=== PATIENT | male | born 1950 | race Caucasian/White ===

== ENCOUNTER 2017-11-01 08:34 | Observation (INO) | payer OTHER ==
--- NOTE | 2017-11-01 08:47 | CPEKG ---
Heart Rate: 55 RR Interval: 1091 P-R Interval: 184 QRSD Interval: 78 QT Interval: 412 QTC Interval: 394 P [place]: 70 QRS [place]: 29 T Wave [place]: 51 EKG Severity - NORMAL ECG - EKG Impression: SINUS RHYTHM Electronically Signed By: Alannah Pina 01-Nov-2017 16:28:43
--- NOTE | 2017-11-01 09:01 | EDPHY ---
HPI/HX/ROS/PE/MDM Narrative: CHIEF COMPLAINT: Chest pain HISTORY OF PRESENT ILLNESS: This patient is a 67 y/o male with history of hypertension arriving with his complaining of chest tightness. He is generally active, but felt unusually fatigued following his exercise on Sunday, three days ago. Also reports slight chest discomfort on Sunday with exercise. He woke at midnight with midsternal chest tightness and felt himself breathing deeply which resolved after 5min. The patient notes he uses CPAP for mild ROSALINDA. He woke again to use the restroom and noted similar symptoms which again resolved quickly. Patient has noted more frequent urination at night lately. This morning after stretching he felt tired, nauseous, had a sensation of epigastric "constriction". He felt mildly diaphoretic from nausea and experienced mild shortness of breath. He called his primary care provider, Dr. Talley, who recommended evaluation here in ED. The patient took an 81mg aspirin and 325mg aspirin as well as his blood pressure medications this morning. He noted his was around 190 systolic which is unusual for him. Currently, he denies any chest pain or shortness of breath. He did not note any increased chest discomfort with deep inspiration. Patient denies history of reflux, ulcer disease, GERD. No diabetes, asthma. Mild hyperlipidemia, not medicated. Nonsmoker. No family history of heart attacks at an early age. No fever, chills, palpitations, vomiting, diarrhea, headache, lightheadedness. REVIEW OF SYSTEMS: Aside from elements discussed in the HPI, a comprehensive 10-point review of systems was reviewed and is negative. PAST MEDICAL HISTORY: Hypertension. 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 . at bedside. Nonsmoker. Moderate alcohol use. No illicit drug use. VITAL SIGNS: Reviewed by me GENERAL: Well-developed, well-nourished, resting comfortably in no respiratory distress. HEENT: Atraumatic. Eyes: No icterus, no injection. Mouth: moist mucous membranes. No erythema or lesions. Neck: supple with no adenopathy. LUNGS: Clear to auscultation bilaterally, no wheezes, rhonchi or rales. CARDIAC: Regular rate and rhythm, no rubs, murmurs or gallops. ABDOMEN: Soft, nontender, nondistended, bowel sounds normal. BACK: No CVA tenderness. EXTREMITIES: No trauma. No edema. Range of motion is normal throughout. NEURO: Alert and oriented, grossly nonfocal. SKIN: Warm and dry, no rash. PSYCHIATRIC: Normal mentation, no agitation. Portions of this note were transcribed by a emergency medical services coordinator. I personally performed a history, physical exam, medical decision making, and confirmed accuracy of information the transcribed note. ED Course: 67 year old patient with history of hypertension presents following episodes of chest tightness and shortness of breath. Plan for EKG, chest x-ray, labs including CBC, chemistries, troponin. Patient's history is concerning for acute coronary syndrome. 12-LEAD EKG: Please see the full report in [facility]. My interpretation: Sinus rhythm, no evidence of ischemia at this time. Decreased voltage in lead III. Troponin elevated at 0.051 09:56 Spoke with REJI Diaz for cardiology. 10:07 Dr. León, medical customer service representative, evaluated patient in the emergency department. Plan to admit patient for elevated troponin, chest pain, cardiac ischemia. Dr. Talley accepts admission. MDM: After history and physical examination, the differential for chest pain was considered, including but not limited to, myocardial ischemia, acute coronary syndrome, pulmonary embolus, chest wall pain, pleural inflammation and pulmonary infectious causes. - Data Points Imaging Results: CXR: Impression: No acute pulmonary disease. Dictated By: Brennon Mahmood MD Imaging: I viewed and interpreted images myself Laboratory Results: Laboratory Results 11/01/17 08:45 11/01/17 08:45 Medications Given: Discontinued Medications Hydrocodone Bitart/Acetaminophen ([place] 5/325) 1 - 2 tab PO Q4HRS PRN PRN Reason: Pain, Moderate Stop: 11/11/17 12:39 Last Admin: 11/02/17 04:04 Dose: 1 tab Amlodipine Besylate (Norvasc) 5 mg PO DAILY [facility] Stop: 05/01/18 08:59 Last Admin: 11/02/17 09:13 Dose: 5 mg Aspirin Buffered (Aspirin Ec) 325 mg PO DAILY [facility] Stop: 05/01/18 08:59 Last Admin: 11/02/17 09:13 Dose: 325 mg Atorvastatin Calcium (Lipitor) 20 mg PO DAILY [facility] Stop: 04/30/18 20:29 Last Admin: 11/02/17 09:12 Dose: 20 mg Cholecalciferol (Vitamin D) 5,000 units PO DAILY [facility] Stop: 05/01/18 08:59 Last Admin: 11/02/17 09:12 Dose: 5,000 units Sodium Chloride (Ns) 500 mls @ 1,000 mls/hr IV EDNOW ONE PRN Reason: Protocol Stop: 11/01/17 09:40 Last Admin: 11/01/17 09:39 Dose: 500 mls Dextrose/Sodium Chloride (D5w 1/2 Ns) 1,000 mls @ 100 mls/hr IV CONT [facility] Stop: 11/01/17 22:44 Last Admin: 11/01/17 18:42 Dose: Not Given Losartan Potassium (Cozaar) 100 mg PO DAILY [facility] Stop: 05/01/18 08:59 Last Admin: 11/02/17 09:13 Dose: 100 mg Losartan Potassium (Cozaar) 50 mg PO ONCE ONE Stop: 11/01/17 20:31 Last Admin: 11/01/17 23:08 Dose: 50 mg Losartan Potassium (Cozaar) 50 mg PO ONCE ONE Stop: 11/01/17 23:16 Last Admin: 11/02/17 01:03 Dose: Not Given Niacin (Niacin) 500 mg PO DAILY [facility] Stop: 05/01/18 08:59 Last Admin: 11/02/17 09:13 Dose: 500 mg Prasugrel (Effient) 10 mg PO DAILY [facility] Stop: 05/01/18 08:59 Last Admin: 11/02/17 09:13 Dose: 10 mg Prasugrel (Effient) 60 mg PO ONCE ONE Stop: 11/01/17 12:41 Last Admin: 11/01/17 18:42 Dose: Not Given General Time Seen by Provider: 11/01/17 08:47 Initial Vital Signs: Initial Vital Signs Temperature (C) 36.7 C 11/01/17 08:42 Heart Rate 61 11/01/17 08:42 Respiratory Rate 16 11/01/17 08:42 Blood Pressure 149/73 H 11/01/17 08:42 O2 Sat (%) 92 11/01/17 08:42 O2 Delivery Mode Room Air Allergies/Adverse Reactions: SEASONAL Allergy (Mild, Uncoded 11/01/17 08:48) Other-Enter Comments Home Medications: Medication Instructions Recorded Cholecalciferol Vit D3 [Vitamin D3 5,000 units PO DAILY 11/01/17 (*)] Losartan Potassium [Cozaar 50 mg 50 mg PO DAILY 11/01/17 (*)] Niacin [Niacin 500 mg (*)] 500 mg PO DAILY 11/01/17 Aspirin EC [Aspirin EC 325 mg (*)] 325 mg PO DAILY tab 11/02/17 Atorvastatin Calcium [Lipitor 20 20 mg PO DAILY 30 Days #30 tab 11/02/17 mg (*)] Metoprolol Succinate Xr [Toprol Xl 50 mg PO DAILY 30 Days #30 tab 11/02/17 50 mg (*)] Nitroglycerin [Nitrostat 0.4 mg 0.4 mg SL Q5M PRN #1 btl 11/02/17 (*)] Prasugrel HCl [Effient 10mg (*)] 10 mg PO DAILY #90 tab 11/02/17 Departure - Departure Disposition: [facility] Inpatient Acute Clinical Impression: Elevated troponin, Cardiac ischemia Chest pain Qualifiers: Chest pain type: other chest pain Qualified Code(s): R07.89 - Other chest pain Condition: Good Report Scribed for: Alannah Pina Report Scribed by: Shanice Au Date of Report: 11/01/17 Time of Report: 09:01
[2017-11-01] MEDS ORDERED: NS 500 ML IV ONE (09:11)
[2017-11-01 09:19] LABS: PLATELET COUNT 213 10^3/uL (150-400)
[2017-11-01] MEDS ORDERED: NITROGLYCERIN 0.4 MG BTL SL PRN (09:52)
--- NOTE | 2017-11-01 10:50 | PDPROPOC ---
Sedation Plan of Care Sedation Plan of Care: vital signs stable, mental status noted ASA Classification: ASA 2 Planned drugs: fentanyl, midazolam Mallampati Score: Class 2 Mallampati Reference Image: Patient passed 3-3-2 rule?: Yes
--- NOTE | 2017-11-01 10:51 | PDHPUP ---
History & Physical Update H&P update statement: This history and physical update is based on an assessment of the patient which was completed after admission or registration (within 24 hours), but prior to the surgery/procedure. H&P update: H&P reviewed & patient examined, no change in patient's condition since H&P completed (Please see my consult noted dated 11/01/2017)
[2017-11-01] MEDS ORDERED: IOPAMIDOL (ISOVUE-370) 150 ML BTL IV ONE ×3 (11:08→11:55)
[2017-11-01] MEDS ORDERED: LIDOCAINE 1% 300 MG/30 ML SDV ONE (11:08)
[2017-11-01] MEDS ORDERED: MIDAZOLAM 2 MG/2 ML VIAL ONE ×2 (11:11→11:55)
[2017-11-01] MEDS ORDERED: fentaNYL 100 MCG/2 ML INJ ONE ×2 (11:11→11:54)
[2017-11-01] MEDS ORDERED: ONDANSETRON 4 MG/2 ML VIAL ONE (11:12)
[2017-11-01 11:15] LABS: INR 0.93 (0.83-1.16); PROTIME(PATIENT) 12.7 SEC (12.0-15.0)
--- NOTE | 2017-11-01 11:29 | GCON ---
[f rep st] CONSULTATION CARDIOLOGY CONSULTATION DATE OF CONSULTATION: 11/01/2017 CHIEF COMPLAINT: Chest pain. HISTORY OF PRESENT ILLNESS: I was asked by Dr. Talley and Dr. Pina to visit with Osmany. The pat robert is a pleasant 67-year-old male with a history of positive calcium score. Last measured was 88 i n his LAD. He has hypertension, untreated sleep apnea. Several days ago, he noticed fatigue during and after his usual work out. He has also had intermitte nt fatigue since that time. Yesterday evening after dinner, he started to notice some chest pressure and chest tightness. This waxed and waned. He woke up this morning and tried to eat breakfast and felt nauseated. He was also having some chest pressure and dyspnea. He talked to Dr. Talley who r ecommended emergency evaluation. He was brought to the ER by EMS. Symptoms improved with sublingual nitroglycerin, but he is still having some mild dyspnea, even with getting up to use the bathroom. REVIEW OF SYSTEMS: A full 10-point review of systems performed, is negative except that which is out lined above. ALLERGIES: No known drug allergies. PAST MEDICAL HISTORY: 1. Coronary artery calcification with a score of 88. 2. Hypertension. 3. Sleep apnea with CPAP. OUTPATIENT MEDICATIONS: Include, losartan, amlodipine, aspirin 81 mg daily, niacin. 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 He is and his is at the bedside. He does not smoke cigarettes. He drinks alcohol rarely. FAMILY HISTORY: Notable for father with stroke. PHYSICAL EXAM: VITAL SIGNS: Blood pressure 130/94, heart rate 54, oxygen saturation 94% on room air . He is afebrile. GENERAL: Well-appearing older male in no acute distress. HEENT: Sclerae are peggy r of jaundice. Mucous membranes are moist. Normocephalic, atraumatic. CARDIOVASCULAR: JVP is less than 10. Carotids equal and 2+ without bruit. Regular rate and rhythm without murmur, rub, or gallop . LUNGS: Clear to auscultation bilaterally without wheezes, rhonchi, rales. ABDOMEN: Soft, nonten salo, nondistended, without bruits, masses, or hepatosplenomegaly. EXTREMITIES: Warm and well perfus ed without cyanosis, clubbing, or edema. NEURO: Alert and oriented x3 without gross focal neurologi c deficits. Appropriate mood and affect. LABORATORY DATA: CBC is normal. D-dimer is negative. INR is pending. Basic metabolic panel is nor mal except for glucose of 120. Troponin is 0.051. BNP is 63, lipase 64. Urinalysis is pending. Chest x-ray pending. EKG reviewed by me. Compared to previous shows sinus rhythm with subtle lateral ST abnormalities lore t are new compared with previous. ASSESSMENT/PLAN: A 67-year-old male with coronary artery calcifications and hypertension, presents w ith symptoms consistent with unstable angina. His EKG is subtly abnormal and he has a minimally posi tive troponin. He is having symptoms at rest. Therefore, the best course of action will be to proce ed with coronary angiography for further evaluation of his coronary arteries. 1. Chest pain: Unstable angina. Risks, benefits, alternatives of coronary angiography reviewed wit h the patient, his , and Dr. Talley and he has agreed to proceed. He has already received aspi rin. He may be a candidate for beta-nisha therapy. Would certainly also add statin therapy to his regimen. 2. Hypertension: At this point is improved but was quite high this morning at home. We will follow him in the hospital. 3. Sleep apnea: If he stays overnight, he can use his own CPAP. Thank you for allowing us to participate in Osmany's care. More recommendations will follow his coronar y angiogram. /[id number]/MODL
[2017-11-01] MEDS ORDERED: BIVALIRUDIN 250 MG/5 ML VIAL IV ONE (11:33)
[2017-11-01] MEDS ORDERED: EPINEPHrine 1 MG/10 ML SYR IVP ONE (11:45)
[2017-11-01] MEDS ORDERED: NITROGLYCERIN 1,500 MCG/15 ML VIAL MISC ONE (11:46)
--- NOTE | 2017-11-01 11:52 | PDDXCAT ---
Diagnostic Cath Note - . Date: 11/01/17 Photo Lab Manager: Mau Indication: other (unstable) - Procedure Access: right groin Procedure: left heart catheterization, coronary angiography, left ventriculogram - Materials Left Heart Cath size: 6F Left Heart Cath materials: standard multipack (JL4, JR4, pigtail) - Findings-Left Heart Catheterization LM: The left main is large and bifurcates into the LAD and left circumflex. There is no flow-limiting disease in the left main. LAD: The LAD is a large vessel reaching the apex. There are 2 principal diagonals. At the bifurcation point of the 2nd diagonal the LAD is 100% occluded with reconstitution of flow. LCX: The left circumflex is codominant. The small 1st obtuse marginal has an ostial 70% lesion. The 2nd obtuse marginal is a large branching vessel without significant disease. The rest of the circumflex proper has no significant flow- limiting disease. RCA: This vessel is codominant. There is no significant flow-limiting disease. Collaterals are seen from the RCA to the LAD. EDP: 22 LVEF: 65% Wall motion: Normal - Findings-Right Heart Catheterization AO: 165/89. There is no aortic stenosis Complications: None Estimated blood loss: <50ml Closure method: other Assessment: Unstable angina with culprit lesion in the mid LAD. Interventional consult with Dr. Hernandez. Patient Problems: Problems Problem Status Onset Chest pain Acute Elevated troponin Acute Cardiac ischemia Acute
[2017-11-01] MEDS ORDERED: ASPIRIN 325 MG TAB ONE (11:53)
[2017-11-01] MEDS ORDERED: LORazepam 2 MG/ML INJ IVP PRN (12:40)
[2017-11-01] MEDS ORDERED: PRASUGREL HCL 10 MG TAB PO ONE (12:40)
[2017-11-01] MEDS ORDERED: OXYCODONE/APAP 5/325 TAB PO PRN (12:40)
[2017-11-01] MEDS ORDERED: HYDROCODONE/APAP 5/325 TAB PO PRN (12:40)
[2017-11-01] MEDS ORDERED: TEMAZEPAM 15 MG CAP PO PRN (12:40)
[2017-11-01] MEDS ORDERED: ONDANSETRON 4 MG/2 ML VIAL IVP PRN (12:40)
[2017-11-01] MEDS ORDERED: ATROPINE SULFATE 1 MG/10 ML SYR IVP PRN (12:40)
[2017-11-01] MEDS ORDERED: PRASUGREL HCL 10 MG TAB ONE (12:42)
[2017-11-01] MEDS ORDERED: D5W 1/2 NS 1,000 ML IV SCH (12:45)
--- NOTE | 2017-11-01 13:14 | CPEKG ---
Heart Rate: 54 RR Interval: 1111 P-R Interval: 188 QRSD Interval: 78 QT Interval: 436 QTC Interval: 414 P [place]: 60 QRS [place]: 40 T Wave [place]: 31 EKG Severity - NORMAL ECG - EKG Impression: SINUS RHYTHM Electronically Signed By: Alannah Pina 01-Nov-2017 16:28:32
[2017-11-01] MEDS ORDERED: ATROPINE SULFATE 1 MG/10 ML SYR ONE (14:45)
--- NOTE | 2017-11-01 15:20 | CPIP ---
[f rep st] INVASIVE CARDIAC PROCEDURE DATE OF PROCEDURE: 11/01/2017 PROCEDURE PERFORMED: 1. Selective coronary angiography. 2. Coronary catheterization. 3. Percutaneous transluminal coronary angioplasty and stent placement of the left anterior descendin g and diagonal bifurcation with use of 2.5 x 16 and 3.5 x 16 Synergy drug-eluting stents in the diago nal and left anterior descending respectively. COMPLICATIONS: None. INDICATIONS/APPROPRIATE USE CRITERIA.: The patient is a 67-year-old man who presented with classic u nstable angina and ST-T abnormality consistent with possible ischemia on a 12-lead EKG performed at 8 :40 this morning. There was nonspecific ST-segment depression in V3, V4, V5 and V6 on his admission EKG. His initial laboratory studies revealed a troponin I of 0.051, consistent with threatened myoca rdial injury and his presentation is consistent with unstable angina pectoris, CCS class 4 angina occ urring at rest with a non STEMI myocardial infarction. PROCEDURE IN DETAIL: I was asked for an intraoperative consultation by my partner, Dr. León, because of a 99%-100% occlusion of the LAD proximal to the LAD diagonal bifurcation. There was a 5-10 mm se gment where there was not obvious constitution of dye within the vessel. There was also evidence of [id number]-if-vrfe collaterals via septals to the mid and distal LAD. We arranged for operative standby w ith Dr. Vinod Sanchez who is finishing up another case and, because of the patient's unstable symptoms and TEMITOPE 2 flow within the LAD, we decided to proceed with coronary intervention, The 6-Niuean sheath was exchanged for a 7-Niuean sheath. A 7-Niuean JL4 guiding catheter was used fo r guide catheter support. A 0.014 Intuition wire was advanced into the LAD and a second intuition wi re placed down the diagonal. The diagonal was principally ballooned with a 2.5 x 15 Emerge balloon f ollowed by a 3.0 x 15 Emerge balloon in the LAD. This demonstrated improvements in flow. There was still evidence of luminal irregularity and haziness consistent with active thrombus within the LAD. The ACT with Angiomax bolus and infusion was documented to be 320 seconds. The diagonal was then luis m nted with a 2.5 x 16 Synergy drug-eluting stent at a maximum pressure of 14 atmospheres. We attempte d to redirect the intuition wire of the diagonal next to the LAD wire and catch the stent strut that was hanging back into the LAD lumen. This was unsuccessful, so we placed a Quarry Supervisor Open Pit 50 wire, and I was able to cannulate the diagonal stent through the lumen, pull the wire back and catch the stent strut that was hanging back into the lumen of the LAD. We then ballooned the stent strut open with a 2.0 x 12 Emerge balloon. The intuition wire was then removed from the LAD and the LAD was then stented ov er the Quarry Supervisor Open Pit 50 wire with the use of a 3.5 x 16 Synergy drug-eluting stent deployed at a maximum pres sure of 14 atmospheres. We redirected the Quarry Supervisor Open Pit 50 wire into the diagonal and then replaced one of [facility] intuition wires into the LAD using a loop technique to go through the middle of the LAD stent. We then performed kissing balloon angioplasty with a 2.5 x 15 Emerge and a 3.0 x 15 Emerge balloon in [facility] LAD. Maximum inflation on each of the balloons was 14 atmospheres. There were excellent angiogra phic results, and 0% residual stenosis status post PTCA and stent placement in the body of the LAD. The ostial diagonal had a 20% residual stenosis with excellent TEMITOPE-3 flow and no evidence of dye str eaming or hang up of contrast within the LAD or diagonal bifurcation. There was excellent TEMITOPE-3 lala w improvement in the LAD post stent implantation. The patient will be admitted to the telemetry unit where troponins will be trended. He will return to the post cath recovery unit where a stat postope rative EKG will be obtained. The patient tolerated the procedure well without immediate complication or dysrhythmia. The patient will need to be on aspirin and Effient or aspirin and Plavix in combination using dual an tiplatelet therapy for at least 1 year post stent implantation. Consideration for longer term dual a ntiplatelet therapy is to be recommended and considered given the bifurcation stenting which has a gr eater risk of late and very late subacute stent thrombosis. /[id number]/MODL
[2017-11-01] MEDS ORDERED: LOSARTAN POTASSIUM 50 MG TAB PO ONE ×2 (20:30→23:15)
--- NOTE | 2017-11-01 22:32 | GHP ---
[f rep st] HISTORY AND PHYSICAL DATE OF ADMISSION: 11/01/2017 REASON FOR ADMISSION: Chest pain, unstable angina. HISTORY: The patient is a 67-year-old male, who states that he was working on Sunday and felt more f atigued than usual. That he did have a little bit chest tightness. This morning he awoke with chest tightness when he did anything, a little bit of nausea, but had blood pressures substantially elevat ed at 200/96. He called me. I suggested he take 325 mg of aspirin, call , and present to the E R. He was seen in the ER, was found to have a minimally elevated troponin at 0.051, and equivocal la teral ST depression on his EKG. It is felt based on his history and clinical presentation it would b e appropriate to proceed straight to the angiogram lab for further evaluation. He was found to have significant subtotal obstruction of his LAD and 1st diagonal and had 2 stents, tolerated the procedur e well, and has been admitted to the hospital for followup. PAST MEDICAL HISTORY: Significant for hypertension, sleep apnea. He is generally healthy. SOCIAL HISTORY: Does not smoke. FAMILY HISTORY: Does have a family history of coronary artery disease very late in life. PHYSICAL EXAMINATION: VITAL SIGNS: When he first presented, his blood pressure was mildly elevated at 142/71 with a pulse rate of 60. GENERAL: He is alert, oriented, and appropriate. He has had no chest pain in the emergency room, although he was having chest pain when the ambulance picked him up to take him to the hospital. He was given nitroglycerin en route because of a sense of shortness of breath and some PVCs. LUNGS: Clear to auscultation. HEART: Regular rate and rhythm without murmur . ABDOMEN: Nontender. EXTREMITIES: He has excellent pulses in lower extremities. He has no perip heral edema and moves all extremities well. IMPRESSION: Unstable angina with subtotal occlusion of his left anterior descending and 1st diagonal branch, status post stent, doing well post procedure. PLAN: Will admit for observation overnight with discharge on aspirin and Effient in the morning. Wi ll follow his blood pressure. Will initiate a statin, as well as better control of blood pressure to night. /[id number]/MODL
[2017-11-01] MEDS: ATORVASTATIN CALCIUM 20 MG TAB PO SCH ×2 (23:07→23:15)
[2017-11-02 04:24] LABS: PLATELET COUNT 189 10^3/uL (150-400)
[2017-11-02] MEDS ORDERED: amLODIPine BESYLATE 5 MG TAB PO SCH (09:00)
[2017-11-02] MEDS ORDERED: CHOLECALCIFEROL VIT D3 1,000 UNITS TAB PO SCH (09:00)
[2017-11-02] MEDS ORDERED: NIACIN 500 MG TAB PO SCH (09:00)
[2017-11-02] MEDS ORDERED: ASPIRIN EC 325 MG TAB PO SCH (09:00)
[2017-11-02] MEDS ORDERED: PRASUGREL HCL 10 MG TAB PO SCH (09:00)
[2017-11-02] MEDS ORDERED: LOSARTAN POTASSIUM 50 MG TAB PO SCH ×2 (09:00)
[2017-11-02] MEDS: ATORVASTATIN CALCIUM 20 MG TAB PO SCH (09:12)
--- NOTE | 2017-11-02 09:17 | CPEKG ---
Heart Rate: 55 RR Interval: 1091 P-R Interval: 188 QRSD Interval: 76 QT Interval: 480 QTC Interval: 460 P [place]: 63 QRS [place]: 47 T Wave [place]: 110 EKG Severity - ABNORMAL ECG - EKG Impression: SINUS RHYTHM EKG Impression: ABNORMAL T, CONSIDER ISCHEMIA, ANT-LAT LEADS Electronically Signed By: Alannah Pina 02-Nov-2017 21:02:55
--- NOTE | 2017-11-02 09:26 | SOAPPROG ---
SOAP Progress Note Assessment/Plan: Assessment:Doing well post stent for unstable angina. Plan: will DC after seen by cardiology. Will place on B-nisha for 12 months and initiate lipitor. Will stop amlodipine as his BP does not need to be lower. 11/02/17 09:25 Subjective: Feeling fine. got good sleep last night. No chest pain or shortness of breath. Objective: Vital Signs Temp Pulse Resp BP Pulse Ox 97.8 F 71 16 115/73 92 11/02/17 08:00 11/02/17 08:00 11/02/17 08:00 11/02/17 09:13 11/02/17 08:00 Laboratory Results 11/02/17 03:54 11/02/17 03:54 11/01/17 11/02/17 11/03/17 05:59 05:59 05:59 Intake Total 1800 Output Total 1550 Balance 250 PT 12.7 SEC (12.0-15.0) 11/01/17 09:48 INR 0.93 (0.83-1.16) 11/01/17 09:48 Pulse in R foot is bounding. No bruising at site of femoral puncture. Lungs clear to asc. COR rrr. BP low. ICD10 Worksheet Patient Problems: Problems Problem Status Onset Cardiac ischemia Acute Chest pain Acute Elevated troponin Acute
--- NOTE | 2017-11-02 10:02 | ASMTCASEMG ---
Living Arrangements What is your living Answers: With Spouse arrangement? Who do you live with? Type Of Residence What kind of residence do Answers: House you live in? Discharge Plan Comments Coordination Status Comments Notes: Pt is a 67 y/o man admitted for chest pain, cardiac ischemia and elevated troponin. Pt will most likely d/c independent when medically stable. No therapies ordered at this time. CM available for changes. Plan: Independent Date Signed: 11/02/2017 10:01 AM Electronically Signed By:MISHEL Hale
--- NOTE | 2017-11-02 10:04 | PDCARPN ---
Cardiology Progress Note Assessment/Plan: Assessment/Plan: 67-year-old male with a history of a positive calcium score of 88, hypertension, treated sleep apnea. He was admitted through the ER on November 01 with acute coronary syndrome. Peak troponin 0.67. He was taken urgently to the rn labor delivery and found to have mid LAD and ostial diagonal disease with subtotal occlusion of these vessels. This was treated with a 3.5 x 16 mm LAD stent and a 2.5 x 16 mm did 2nd diagonal stent. These are both Synergy drug -eluting stents. He has done well postprocedure without recurrent symptoms. 1. Coronary disease/acute coronary syndrome: He is now stable and ready for discharge 24 hr post PCI. The importance of uninterrupted dual antiplatelet therapy for at least 1 year was emphasized to the patient. He will be started on statin therapy. We have added beta-blockers and stopped his amlodipine. He agrees to enroll in cardiac rehab. Follow up with either me or Dr. Hernandez in 7- 10 days. 2. Hypertension: Well controlled at this point. Medication changes as per 1. 3. Sleep apnea: Continue CPA P. 11/02/17 10:01 Subjective: Osmany feels well. No angina or dyspnea. No lightheadedness. Back pain has resolved. No discomfort in his right groin. Reviewed/Discussed With: other (Dr. Talley) Time Spent With Patient: 20 min. Objective: Vital Signs (8 Hrs) Temp Pulse Resp BP Pulse Ox 11/02/17 09:13 115/73 11/02/17 08:00 36.6 C 71 16 115/73 92 11/02/17 04:00 36.4 C 65 16 120/68 90 L Intake/Output (24 Hrs) 11/01/17 11/02/17 11/03/17 05:59 05:59 05:59 Intake Total 1800 Output Total 1550 Balance 250 Intake: Oral (ml) 700 IV Intake (ml) 600 IV Infused (ml) 500 Output: Urine (ml) 1550 Toilet 1100 Urinal 450 Other: Weight 95.25 kg Number of Voids Toilet 1 Urinal 1 No acute distress Regular rate and rhythm without murmur or gallop Lungs clear bilaterally wheeze rhonchi or rales Right femoral arteriotomy site is clean dry and intact without hematoma, ecchymosis, or bruit. No lower extremity edema. Intact distal pulses. Result Diagrams: 11/02/17 03:54 11/02/17 03:54 Cardiac Labs: Cardiac Lab Results (72 Hrs) 11/02/17 11/02/17 11/01/17 03:54 00:01 18:45 Troponin I 0.613 H 0.673 H 0.507 H Telemetry: Sinus rhythm with occasional PVCs. One 3 beat run of VT. ICD10 Worksheet Patient Problems: Problems Problem Status Onset Chest pain Acute Elevated troponin Acute Cardiac ischemia Acute
[2017-11-02 12:06] VITALS: BP 125/67
[2017-11-03] MEDS ORDERED: METOPROLOL SUCCINATE XR 50 MG TAB PO SCH (09:00)
--- NOTE | 2017-11-05 12:23 | GDS ---
[f rep st] DISCHARGE SUMMARY ADMISSION DIAGNOSIS: Unstable angina. DISCHARGE DIAGNOSIS: Unstable angina. PROCEDURES: Angiography with stenting of the LAD and first diagonal arteries. HOSPITAL COURSE: The patient had chest pain with minimal exertion. He had a trivially elevated trop onin and a subtle lateral ST depression on his EKG. He was taken from the ER to the angiogram suite where he underwent a semi-elective angiography which demonstrated subtotal obstruction of his proxima l LAD and first diagonal branches. This was treated with stent in the proximal first diagonal, as we ll as the adjoining LAD. A result of the stenting revealed significant relief of the obstructions. There were no complications of procedure. His discomfort completely resolved. He did well. He had no bleeding. Had excellent pulses in his feet and he has been discharged home. DISCHARGE MEDICATIONS: Aspirin 81 mg daily, atorvastatin 20 mg daily, cholecalciferol 5000 units vince ly, losartan 100 mg daily, metoprolol 50 mg daily extended release, niacin 500 mg daily, Effient 10 m g daily, fish oil/omega-3 at 2000 mg daily, aged garlic extract, vitamin K2 at 100 mcg daily. DISCHARGE INSTRUCTIONS: He will follow up in the office in 1 week. /[id number]/MODL
== END 2017-11-02 12:56 | disposition home or self-care (01) ==
LOC: EDUNIT# → F2W 17:20
PROVIDERS: ADMIT Internal Medicine; ATTEND Internal Medicine
DX: I25.119 Atherosclerotic heart disease of native coronary artery with unspecified angina pectoris (principal); I25.82 Chronic total occlusion of coronary artery; I10 Essential (primary) hypertension
CPT/HCPCS: 71045; 92928; 92929; 92941; 93005; 93458; 96360; 99285; C1725; C1769; C1887; G0378; C1874; C9600; C9601; C9606; J0461; J0583; J1644; J2250; J2405; J3010; Q9967